=== PATIENT | female | born 2000 | race African-American/Black ===

== ENCOUNTER 2022-01-18 15:27 | Emergency (ER) | payer MEDICAID, OTHER ==
[~2022-01-18] VITALS: Ht 160 cm; Wt 67.0 kg
[~2022-01-18 15:27] MED LIST: ALBU25PO2
[2022-01-18 22:23] LABS: CLARITY URINE TURBID (CLEAR); COLOR URINE YELLOW (YELLOW); KETONES URINE 3+ (NEGATIVE); LEUKOCYTE ESTERASE URINE 2+ (NEGATIVE); NITRITE URINE NEGATIVE (NEGATIVE); OCCULT BLOOD URINE 3+ (NEGATIVE); PROTEIN URINE 3+ (NEGATIVE); SPECIFIC GRAVITY URINE 1.024 (1.005-1.030); UROBILINOGEN URINE 0.2 E.U./dL (0.2-1.0)
[2022-01-18] MEDS ORDERED: NITR-87 MT (23:21)
[2022-01-18] MEDS ORDERED: PHEN-815 MT (23:21)
[2022-01-18] MEDS ORDERED: METR-167 MT (23:21)
[2022-01-18 23:35] VITALS: BP 128/75
== END 2022-01-18 23:35 | disposition home or self-care (01) ==
LOC: ER 15:27
DX: N39.0 Urinary tract infection, site not specified (principal)
CPT/HCPCS: 81003; 81025; 87086; 87210; 99284; Z7610

== ENCOUNTER 2024-06-19 02:00 | Emergency (ER) | payer MEDICAID ==
[~2024-06-19] VITALS: Ht 165.1 cm; Wt 60.0 kg
[~2024-06-19 02:00] MED LIST changes: +METR-167 MT; +NITR-87 MT; +PHEN-815 MT
[2024-06-19 02:01] VITALS: O2SAT 100
[2024-06-19 03:18] LABS: *AMPHETAMINES SCREEN URINE NEGATIVE (NEGATIVE); *BARBITURATES SCREEN URINE NEGATIVE (NEGATIVE); *BENZODIAZEPINES SCREEN URINE NEGATIVE (NEGATIVE); *COCAINE SCREEN URINE NEGATIVE (NEGATIVE); METHADONE URINE SCREEN NEGATIVE (NEGATIVE); OPIATES URINE SCREEN NEGATIVE (NEGATIVE); PHENCYCLIDINE URINE SCREEN NEGATIVE (NEGATIVE)
[2024-06-19 03:19] LABS: CANNABINOID URINE SCREEN PRESUMPTIVE POSITIVE (NEGATIVE); ECSTASY MDMA SCREEN URINE NEGATIVE (NEGATIVE)
[2024-06-19 03:24] LABS: CLARITY URINE CLEAR (CLEAR); COLOR URINE YELLOW (YELLOW); GLUCOSE URINE NEGATIVE (NEGATIVE); KETONES URINE 1+ (NEGATIVE); LEUKOCYTE ESTERASE URINE 2+ (NEGATIVE); NITRITE URINE NEGATIVE (NEGATIVE); OCCULT BLOOD URINE NEGATIVE (NEGATIVE); PH URINE 5.5 (4.5-8.0); PROTEIN URINE 1+ (NEGATIVE); SPECIFIC GRAVITY URINE 1.025 (1.005-1.030)
[2024-06-19 03:28] LABS: CARBON DIOXIDE 23 mEq/L (21-32); CHLORIDE 107 mEq/L (98-107); POTASSIUM 3.8 mEq/L (3.5-5.1); SODIUM 140 mEq/L (136-145)
[2024-06-19 03:29] LABS: CALCIUM 10.9 mg/dL (8.7-10.4)
[2024-06-19] MEDS ORDERED: DIPHENHYDRAMINE 50MG CAPSULE PO ONE (03:30)
[2024-06-19 03:33] LABS: BASOPHILS % 0.8 % (0.0-2.0); CREATININE 0.8 mg/dL (0.6-1.0); EOSINOPHILS % 1.7 % (0.0-5.0); GLUCOSE 103 mg/dL (70-105); HEMATOCRIT. 42.2 % (36.0-48.0); HEMOGLOBIN. 14.2 g/dL (12.0-16.0); LYMPHOCYTES % 46.8 % (20.0-50.0); MEAN CORPUSCULAR HEMOGLOBIN 31.1 pg (28.0-32.0); MEAN CORPUSCULAR HGB CONC 33.7 g/dL (31.0-37.0); MEAN CORPUSCULAR VOLUME 92.3 fL (81.0-99.0); MEAN PLATELET VOLUME 7.9 fl (7.4-10.4); MONOCYTES % 6.4 % (2.0-8.0); NEUTROPHILS % 44.3 % (40.0-76.0); PLATELET 400 x1000/uL (130-400); RED BLOOD CELL COUNT 4.57 mill/uL (4.2-5.4); RED CELL DISTRIBUTION WIDTH 14.4 % (11.6-14.6); WHITE BLOOD COUNT 7.7 x1000/uL (4.5-11.0)
[2024-06-19 03:34] LABS: ETHANOL BLOOD 92 mg/dL (<10); UREA NITROGEN BLOOD 9 mg/dL (9-23)
[2024-06-19 03:36] LABS: ACETAMINOPHEN < 2 ug/mL (10-30)
[2024-06-19 03:51] LABS: SQUAMOUS EPITHELIAL CELL URINE 1+ /lpf (RARE/1+)
[2024-06-19 03:52] LABS: BACTERIA URINE TRACE; RBC URINE 0-2 /hpf (0-2); WBC URINE 15-25 /hpf (0-2)
[2024-06-19 03:53] LABS: HCG SCREEN NEGATIVE
[2024-06-19] MEDS: DIPHENHYDRAMINE 25MG CAPSULE PO ONE (03:59)
[2024-06-19 08:53] VITALS: BP 123/72; PULSE 85; RESP 18; TEMP 36.8; O2SAT 100
== END 2024-06-19 12:43 | disposition home or self-care (01) ==
LOC: ER 02:00
DX: R45.851 Suicidal ideations (principal); F31.9 Bipolar disorder, unspecified; Z20.822 Contact with and (suspected) exposure to COVID-19
CPT/HCPCS: 80305; 80048; 81003; 80307; 80329; 80320; 84703; 85025; 87086; 36415; 99285; 87426; Q0163; G0480